=== PATIENT | female | born 1995 | race Caucasian/White ===

== ENCOUNTER 2021-09-30 16:11 | Emergency (ER) | payer OTHER ==
[2021-09-30] MEDS ORDERED: ONDANSETRON 4 MG/2 ML VIAL IVP STA (16:25)
[2021-09-30] MEDS ORDERED: SODIUM CHLORIDE 0.9% 1,000 ML IV STA (16:25)
[2021-09-30] MEDS ORDERED: KETOROLAC 30 MG/ML VIAL IVP STA (16:33)
--- NOTE | 2021-09-30 16:37 | ED Physician Documentation ---
History of Present Illness - Stated complaint Stated Complaint: NAUSEA/VOMITING - Chief complaint Chief Complaint: Abd Pain - History obtained from History obtained from: Patient - History of Present Illness Timing: Today Pain level max: 8 Pain level now: 6 - Additonal information Additional information: Patient is a 26-year-old female who presents to the emergency department with dysuria, urinary frequency. She recently finished a course of Bactrim. Today had increasing burning and pain. Has low back pain as well. No vaginal bleeding or discharge. Started having nausea and vomiting today. Review of Systems Constitutional: denies: Fever, Chills Respiratory: denies: Cough GI: denies: Vomiting, Diarrhea : reports: Dysuria, Frequency, Hesitancy. denies: Discharge, Vaginal bleeding, Now EGA Skin: denies: Rash Musculoskeletal: denies: Neck pain, Extremity pain Neurologic: denies: Headache PD PAST MEDICAL HISTORY - Past Medical History Past Medical History: Yes Respiratory: Asthma Endocrine/Autoimmune: None : Chronic bladder infection HEENT: None Psych: None Musculoskeletal: None Derm: None - Past Surgical History Past Surgical History: Yes - Present Medications Home Medications: Ambulatory Orders Medication Instructions Recorded Confirmed Cefdinir 300 mg PO BID #28 cap 09/30/21 Ondansetron Odt [Zofran] 4 mg TL Q6H PRN #10 tablet 09/30/21 - Allergies Allergies/Adverse Reactions: Allergies Allergy/AdvReac Type Severity Reaction Status Date / Time Penicillins Allergy Rash Verified 09/30/21 16:20 - Social History Does the pt smoke?: No Smoking Status: Never smoker PD ED PE NORMAL - Vitals Vital signs reviewed: Yes - General General: Alert and oriented X 3, No acute distress, Well developed/nourished - HEENT HEENT: PERRL, Moist mucous membranes - Neck Neck: Supple, no meningeal sign - Cardiac Cardiac: RRR - Respiratory Respiratory: No respiratory distress, Clear bilaterally - Abdomen Abdomen: Soft, Non tender, Non distended - Back Back: No spinal TTP, Other (mild R CVAT) - Derm Derm: Warm and dry - Extremities Extremities: No edema - Neuro Neuro: Alert and oriented X 3 - Psych Psych: Normal mood, Normal affect Results - Vitals Vitals: Vital Signs - 24 hr 09/30/21 09/30/21 16:14 18:14 Temperature 36.3 C L 37.2 C Heart Rate 98 95 Respiratory 16 16 Rate Blood Pressure 138/103 H 111/72 O2 Saturation 99 97 Oxygen O2 Source Room air - Labs Labs: Laboratory Tests 09/30/21 09/30/21 09/30/21 15:20 16:30 16:30 WBC 10.4 RBC 5.00 Hgb 13.8 Hct 42.9 MCV 85.8 MCH 27.6 MCHC 32.2 RDW 16.0 H Plt Count 181 MPV 11.0 H Neut # (Auto) 9.8 H Lymph # (Auto) 0.3 L [place] # (Auto) 0.3 Eos # (Auto) 0.0 Baso # (Auto) 0.0 Absolute Nucleated RBC 0.00 Nucleated RBC % 0.0 Sodium 135 Potassium 3.7 Chloride 102 Carbon Dioxide 22 Anion Gap 11.0 BUN 18 Creatinine 0.9 Estimated GFR (MDRD) 75 L Glucose 120 H Calcium 9.0 Total Bilirubin 0.9 AST 26 ALT 18 Alkaline Phosphatase 34 L Total Protein 7.7 Albumin 4.6 Globulin 3.1 Albumin/Globulin Ratio 1.5 Lipase 31 Urine Color DK. ORANGE Urine Clarity CLEAR Urine pH Ur Specific [place] Urine Protein Urine Glucose (UA) Urine Ketones Urine Occult Blood Urine Nitrite Urine Bilirubin COLOR INTERFERENCE Urine Urobilinogen Ur Leukocyte Esterase Urine RBC None Seen Urine WBC 0-3 Ur Squamous Epith Cells RARE Squamous Urine Bacteria Rare Ur Microscopic Review INDICATED Urine Culture Comments NOT INDICATED Urine HCG, Qual NEGATIVE PD MEDICAL DECISION MAKING - ED course Complexity details: reviewed results, re-evaluated patient, considered differential, d/w patient ED course: 26-year-old female with symptoms concerning for pyelonephritis. No fevers but is having chills. Given Rocephin IV. Given IV fluids and antiemetics. Pain controlled. Patient feels better. Vaginal swabs were performed by the patient for bacterial vaginitis panel and gonorrhea/chlamydia testing. We will place her on cefdinir for home. Patient does not appear septic. No changes in sexual partners. Low risk for STI. Patient counseled regarding signs and symptoms for which I believe and urgent re-evaluation would be necessary. Patient with good understanding of and agreement to plan and is comfortable going home at this time This document was made in part using voice recognition software. While efforts are made to proofread this document, sound alike and grammatical errors may occur. Departure - Departure Disposition: 01 Home, Self Care Clinical Impression: Pyelonephritis Vomiting Qualifiers: Vomiting type: unspecified Nausea presence: with nausea Qualified Code(s): R11.2 - Nausea with vomiting, unspecified Condition: Good Instructions: ED Kidney Infec Female Follow-Up: Citlaly Martinez ARNP [Primary Care Provider] - Within 1 week Prescriptions: Cefdinir 300 mg PO BID #28 cap Ondansetron Odt [Zofran] 4 mg TL Q6H PRN #10 tablet PRN Reason: Nausea / Vomiting Comments: Take all antibiotics until gone. Return if you worsen. The swab should be back tomorrow. I will call you with your results. Drink plenty of fluids and rest. Your prescriptions were sent to [facility] in [place].
[2021-09-30 16:40] LABS: BASOPHILS % (AUTO) 0.2 %; EOSINOPHILS % (AUTO) 0.1 %; HCT - HEMATOCRIT 42.9 % (37.0-47.0); HGB - HEMOGLOBIN 13.8 g/dL (12.0-16.0); LYMPHOCYTES # (AUTO) 0.3 10^3/uL (1.5-3.5); LYMPHOCYTES % (AUTO) 2.5 %; MEAN CORPUSCULAR HEMOGLOBIN 27.6 pg (27.0-31.0); MEAN CORPUSCULAR HGB CONC 32.2 g/dL (32.0-36.0); MEAN CORPUSCULAR VOLUME 85.8 fL (81.0-99.0); MONOCYTES # (AUTO) 0.3 10^3/uL (0.0-1.0); MONOCYTES % (AUTO) 3.2 %; NEUTROPHILS # (AUTO) 9.8 10^3/uL (1.5-6.6); NEUTROPHILS % (AUTO) 93.7 %; PLT - PLATELET COUNT 181 10^3/uL (130-450); WHITE BLOOD COUNT 10.4 x10^3/uL (4.8-10.8)
[2021-09-30 16:50] LABS: ALBUMIN 4.6 g/dL (3.2-5.5); ALBUMIN/GLOBULIN RATIO 1.5 (1.0-2.2); BILIRUBIN,TOTAL 0.9 mg/dL (0.2-1.0); CREATININE 0.9 mg/dL (0.4-1.0); POTASSIUM 3.7 mmol/L (3.5-5.0); TOTAL PROTEIN 7.7 g/dL (6.7-8.2)
[2021-09-30 17:47] LABS: CLARITY,URINE CLEAR (CLEAR)
[2021-09-30 17:48] LABS: BILIRUBIN,URINE COLOR INTERFERENCE (NEGATIVE)
[2021-09-30 17:49] LABS: BACTERIA,URINE Rare /HPF (None Seen); HCG UR QUAL NEGATIVE; RBC,URINE None Seen /HPF (0-5); SQUAMOUS EPITHELIAL CELL,UR RARE Squamous (<= Few); WBC,URINE 0-3 /HPF (0-5)
[2021-09-30] MEDS ORDERED: ACETAMINOPHEN 325 MG TABLET PO STA (17:51)
[2021-09-30] MEDS ORDERED: cefTRIAXone 1 GM VIAL IVP STA (17:52)
[2021-09-30 18:15] VITALS: BP 111/72
[2021-09-30 20:16] LABS: BACTERIAL VAGINOSIS DNA POSITIVE (NEGATIVE); CANDIDA GLABRATA DNA NEGATIVE (NEGATIVE); CANDIDA GROUP DNA NEGATIVE (NEGATIVE); CANDIDA KRUSEI DNA NEGATIVE (NEGATIVE); TRICHOMONAS VAGINALIS DNA NEGATIVE (NEGATIVE)
[2021-09-30 21:33] LABS: CHLAMYDIA TRACHOMATIS DNA NEGATIVE (NEGATIVE); NEISSERIA GONORRHOEAE DNA NEGATIVE (NEGATIVE); TRICHOMONAS VAGINALIS DNA NEGATIVE (NEGATIVE)
--- NOTE | 2021-10-01 12:57 | ED Physician Documentation ---
ED Addendum - Addendum Addendum: 10/01/21 12:57 Patient tested positive for bacterial vaginitis. Will place on Flagyl for home as well. Prescription was sent to [facility] in [place]. Message left for patient at 12:57 PM on 10/01/2021 Departure - Departure Disposition: 01 Home, Self Care Clinical Impression: Pyelonephritis, Bacterial vaginitis Vomiting Qualifiers: Vomiting type: unspecified Nausea presence: with nausea Qualified Code(s): R11.2 - Nausea with vomiting, unspecified Condition: Good Instructions: ED Kidney Infec Female Follow-Up: Citlaly Martinez ARNP [Primary Care Provider] - Within 1 week Prescriptions: Cefdinir 300 mg PO BID #28 cap metroNIDAZOLE [Flagyl] 500 mg PO BID #14 tablet Ondansetron Odt [Zofran] 4 mg TL Q6H PRN #10 tablet PRN Reason: Nausea / Vomiting Comments: Take all antibiotics until gone. Return if you worsen. The swab should be back tomorrow. I will call you with your results. Drink plenty of fluids and rest. Your prescriptions were sent to [facility] in [place]. Discharge Date/Time: 09/30/21 18:32
== END 2021-09-30 18:32 | disposition home or self-care (01) ==
LOC: ED 16:11
DX: N12 Tubulo-interstitial nephritis, not specified as acute or chronic (principal); R11.10 Vomiting, unspecified
CPT/HCPCS: 36415; 80053; 81001; 81025; 83690; 85025; 87481; 87491; 87591; 87661; 87801; 96374; 96375; 99283; 99284; A9270; 81003; 87086

== ENCOUNTER 2021-10-27 08:00 | Outpatient (CLI) | payer OTHER ==
[2021-10-28 01:38] LABS: BACTERIAL VAGINOSIS DNA NEGATIVE (NEGATIVE); CANDIDA GLABRATA DNA NEGATIVE (NEGATIVE); CANDIDA GROUP DNA NEGATIVE (NEGATIVE); CANDIDA KRUSEI DNA NEGATIVE (NEGATIVE); TRICHOMONAS VAGINALIS DNA NEGATIVE (NEGATIVE)
== END 2021-10-27 23:59 | disposition home or self-care (01) ==
LOC: LAB.S 08:00
PROVIDERS: ATTEND Physician Assistant
DX: R30.0 Dysuria (principal)
CPT/HCPCS: 87086; 87661; 87801